=== PATIENT | female | born 1995 | race African-American/Black ===

== ENCOUNTER → 2025-01-12 | Emergency (ER) | payer SELFPAY ==
[~2025-01-12] VITALS: Ht 167.6 cm; Wt 68.0 kg
[2025-01-12 23:39] LABS: CALCIUM, SERUM 9.1 mg/dL (8.5-10.1); CREATININE 0.9 mg/dL (0.6-1.3); POTASSIUM 3.6 mmol/L (3.5-5.1)
[2025-01-12 23:45] LABS: PREGNANCY TEST URINE QUAL NEGATIVE (NEGATIVE)
[2025-01-13 00:40] LABS: BASOPHILS # (AUTO) 0.1 K/uL (0.0-0.2); BASOPHILS % (AUTO) 0.9 % (0.0-2.0); EOSINOPHILS # (AUTO) 0.1 K/uL (0.0-0.7); EOSINOPHILS % (AUTO) 1.6 % (0.0-6.0); HEMATOCRIT 43 % (33-45); HEMOGLOBIN 14.8 g/dL (11.5-14.8); LYMPHOCYTES # (AUTO) 2.8 K/uL (0.8-4.8); LYMPHOCYTES % (AUTO) 31.6 % (20.0-44.0); MEAN CORPUSCULAR HEMOGLOBIN 30 PG (26.0-33.0); MEAN CORPUSCULAR HGB CONC 35 g/dl (31.0-36.0); MEAN CORPUSCULAR VOLUME 86 fL (82-100); MONOCYTES # (AUTO) 0.8 K/uL (0.1-1.30); MONOCYTES % (AUTO) 8.7 % (2.0-12.0); NEUTROPHILS % (AUTO) 57.2 % (43.0-81.0); PLATELET COUNT (AUTO) 216 K/uL (150-450); RED BLOOD CELL COUNT(AUTO) 5.03 MIL/uL (4.0-5.2); RED CELL DISTRIBUTION WIDTH 14.3 % (11.5-15.0); WHITE BLOOD COUNT (AUTO) 8.8 K/uL (4.3-11.0)
[2025-01-13 05:03] VITALS: BP 122/77; TEMP 99.1; O2SAT 97
== END | disposition home or self-care (01) ==
LOC: ER 20:43
DX: G47.8 Other sleep disorders (principal)
CPT/HCPCS: 36415; 80048-TC; 84703-TC; 85025-TC